=== PATIENT | male | born 1990 | race Caucasian/White ===

== ENCOUNTER 2025-02-04 16:43 | Emergency (ER) | payer OTHER, SELFPAY ==
--- OUTSIDE RECORDS SUMMARY | 2025-02-04 16:45 | XMS_ITS | Clinical Summary ---
Author Organization [facility] Address [address] [place] [address] Care Team Providers Care Stripping Machine Operator Name Role Phone Jennifer Herrera Primary Care Provider Allergies Active Allergy Reactions Criticality Noted Date Comments Ibuprofen Rash 08/21/2011 Medications lisdexamfetamine (Vyvanse) 40 mg capsuleIndications :ADHD, predominantly inattentive type Take 1 Capsule (40 mg) by mouth once daily. 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 Chronic rhinitis 04/05/2011 Anxiety state, unspecified 11/05/2009 Esophageal reflux Resolved Problems Problem Noted Date Diagnosed Date Resolved Date Acute myopericarditis 08/06/20112012 Tobacco use disorder 04/19/2011 013 Acute myocarditis, unspecified 04/25/2008 09/18/2012 Overview (04/25/2008): Likely viral Encounters Date Type Department Care Team Description 11/10/2024 Telephone [facility] [address] [place] [address] Jennifer Herrera PA Medication Management (lisdexamfetamine (Vyvanse) 40 mg capsule) from Last 3 Months Immunizations Immunization Administration Dates Next Due COVID-19 VACCINE SPIKEVAX (M ODERNA 50MCG/0.5ML) 12YO+ PFS 04/07/2024 COVID-19 vaccine (Pfizer-Bio NTech 30mcg/0.3mL) PFNANO 06/08/2021,10/07/2020,09/16/2020 DTaP 01/03/1995, 3,1989,1989,1989 HIB HbOC (HibTITER) 08/24/1990,04/09/1990 HIB PRP-T (ActHIB,Hiberix) 08/24/1990,04/09/1990 Hepatitis B (Peds) 07/05/2004,06/17/1996, 996 Hepatitis B, Unspecified 07/05/2004,06/17/1996,1 07/08/1995 INFLUENZA, IIV3 PF (AGE >= 6 MO) 04/07/2024 Inactivated Polio Vaccine 01/03/1995,11/1992,1989,1989 Influenza, IIV3 (Age >=3 years) 08/07/2011,04/27 Influenza, IIV4 03/25/2019,02/26/2018 Influenza, IIV4 (=>6mos) MDV 02/28/2017 MMR 01/03/1995,08/24/1990 Pneumococcal Poly,23-Valent (Pneumovax) 08/07/2011 Td (Age >=7 Years) 07/05/2004 Td, Preservative Free (age > = 7 Years) 03/25/2019,07/05/2004 Tdap 02/23/2009 Tuberculin (PPD) 04/05/2011 Family History Medical History Relation Name Comments Good Health Father Good Health Mother Good Health Sister 1 Heart Disease Sister 1 at 2 1/2 of myocarditis Good Health Sister 2 Relation Name Status Comments Brother Father Mother Alive Sister 1 Sister 2 Alive Social History Tobacco Use Types Packs/Day Years Used Date Smoking Tobacco: Former Cigarettes 0.5 3 0 07/28/2017 - 07/28/2020 Smokeless Tobacco: Former Chew Quit: 08/05/2011 Tobacco Cessation:Counseling Given: Not Answered Comments:off and on Alcohol Use Standard Drinks/Week Comments No 0.8 (1 standard drink = 0.6 oz p ure alcohol) PHQ-2 Answer Date Recorded PHQ-2 TOTAL SCORE 1 08/25/2020 Financial Resource Strain Answer Date R ecorded Difficulty of Paying Living Expenses Not on file 06/03/2021 Difficulty of Paying Living Expenses Not on file 06/03/2021 Sex and Gender Information Value Date Recorded Sex Assigned at Male 02/14/2020 12:51 PM CDT Legal Sex Male 5:49 AM BUILDING MECHANIC Gender Identity Male 02/14/2020 12:51 PM CDT Sexual Orientation Straight 02/14/2020 12 :51 PM CDT Obstetrics History Last Filed Vital Signs Vital Sign Reading Time Taken Comments Blood Pressure 102/69 04/07/2024 1:23 PM BUILDING MECHANIC Pulse 84 04/07/2024 1:23 PM BUILDING MECHANIC Temperature 37.1 C (98.7 F) 04/21/2019 10:57 AM BUILDING MECHANIC Respiratory Rate 16 02/20/2019 2:02 PM CDT Oxygen Saturation 98% 04/21/2019 10:57 AM BUILDING MECHANIC Inhaled Oxygen Concentration - - Weight 83 kg (183 lb) 04/07/2024 1:23 PM BUILDING MECHANIC Height 176 cm (5' 9.29) 04/07/2024 1:23 PM BUILDING MECHANIC Body Mass Index 26.8 04/07/2024 1:23 PM BUILDING MECHANIC Plan of Treatment Health Maintenance Due Date Last Done Comments Depression screening for age 12+ 08/25/2021 08/25/2020, 08/25/2020, 08/25/2020, Additional history exists Lipids for age 35-44 2024 Influenza Vaccine (#1) 2025 , 03/25/2019, 02/26/2018, Additional history exists BMI (ht and wt on same day) for age 18+ 04/07/2025 04/07/2024, 11/23/2020, 08/19/2019, Additional history exists Tetanus booster 03/25/2029 03/25/2019, 02/03, 07/05/2004, Additional history exists RSV vaccine for adults or (1 - 1-dose 75+ series) 2064 Hepatitis B series for 19+ Completed 07/05, 07/05/2004, 06/17/1996, Additional history exists HIV for age 15-65 Completed 06/30/2009 Hepatitis C screening for age 18-79 Completed 06/30/2009 Pneumococcal series for age 6-49 Aged Out 08/07/2011 No longer eligible based on patient's age to complete this topic COVID-19 vaccine series Completed 04/07/20, 06/08/2021, 10/07/2020, Additional history exists Procedures Procedure Name Priority Date/Time Associated Diagnosis Comments ANTI HIV 1/2 Routine 06/30/2009 6:04 PM BUILDING MECHANIC Abdominal Pain, Unspecified Site ANTI HCV Routine 06/30/2009 6:04 PM BUILDING MECHANIC Abdominal Pain, Unspecified Site from Last 3 Months or Most Recently Relevant to Health Maintenance Results * ANTI HCV (06/30/2009 6:04 PM BUILDING MECHANIC) ANTI HCV Non-reacti ve [facility] Blood specimen (specimen) BLOOD SPECIMEN / Unknown 06/30/2009 6:04 PM BUILDING MECHANIC 06/30/2009 5:54 PM BUILDING MECHANIC Jennifer HULL SEND OUTS Final R esult Performing Organization Address [facility]/ZIP Co de Phone Number [facility] INTERNAL ZIP [address] [place] [phone] * ANTI HIV 1/2 (06/30/2009 6:04 PM BUILDING MECHANIC) ANTI HIV 1/2 Non-reacti ve [facility] Blood specimen (specimen) BLOOD SPECIMEN / Unknown 06/30/2009 6:04 PM BUILDING MECHANIC 06/30/2009 5:54 PM BUILDING MECHANIC Jennifer HULL SEND OUTS Final R esult Performing Organization Address City/[facility]/ZIP Co de Phone Number [facility] INTERNAL ZIP [address] [place] [phone] from Last 3 Months or Most Recently Relevant to Health Maintenance Insurance [facility] Advance Directives * Full Code (Latest Code Status on File) Date Activated Date Inactivated Comments 08/06/2011 11:36 AM 08/12/2011 1:26 PM * Full Code Date Activated Date Inactivated Comments 04/25/2008 12:45 PM 04/28/2008 3:38 PM Care Teams Stripping Machine Operator Relationship Specialty Start Date End Date Jennifer Herrera PA [address] [place], [place] [phone] PCP - General 07/26/09
--- OUTSIDE RECORDS SUMMARY | 2025-02-04 16:45 | XMS_ITS | Clinical Summary ---
Author Organization [facility] Address [address] [place] [address] Care Team Providers Care Sterilization Tech Name Role Phone Magdi, [facility] Primary Care Provider Allergies Active Allergy Reactions Criticality Noted Date Comments Ibuprofen Itching,Rash Low 08/21/2011 Itching and white spots Ketorolac Itching Medium 07/04/2019 Medications fluticasone (FLONASE) 50 MCG/ACT nasal spray Omega 1 spray into both nostrils daily as needed for rhinitis or allergies Active acetaminophen (TYLENOL) 325 MG tablet Take 2 tablets (650 mg) by mouth every 6 hours as needed for mild pain 0 Active sertraline (ZOLOFT) 100 MG tablet Take 1 tablet by mouth daily at 2 pm 3 Active VYVANSE 20 MG capsule Take 20 mg by mouth daily 3 Active VYVANSE 50 MG capsule Take 50 mg by mouth daily 3 Active oxyCODONE (ROXICODONE) 5 MG tabletIndication s:Incisional hernia, without obstruction or gangrene Take 1-2 tablets (5-10 mg) by mouth every 4 hours as needed for moderate to severe pain 20 tablet 3 Active ondansetron (ZOFRAN ODT) 4 MG ODT tabIndications:I ncisional hernia, without obstruction or gangrene Take 1 tablet (4 mg) by mouth every 8 hours as needed for nausea 10 tablet 3 Active Active Problems Problem Noted Date Diagnosed Date Cholecystitis 01/05/2019 Peritonitis 11/28/2018 Acute cholecystitis 11/27/2018 Immunizations Immunization Administration Dates Next Due DTaP, Unspecified 01/03/1995, 3,1989,1989,1989 HIB (PRP-T) 08/24/1990,04/09/1990 HepB, Unspecified 07/05/2004,06/17/1996,05/07/19 96 Influenza (IIV3) PF 08/07/2011,04/27/2008 Influenza Vaccine >6 months,quad, PF 02/26/2018, 02/28/2017 MMR (MMRII) 01/03/1995,08/24/1990 Pneumococcal 23 valent 08/07/2011 Poliovirus, inactivated (IPV) 01/03/1995 ,09/07/1992,1989,1989 TD,PF 7+ (Tenivac) 07/05/2004 Tdap (Adult) Unspecified Formulation 02/23/2009 Family History Medical History Relation Comments Colon Cancer No family hx of Social History Tobacco Use Types Packs/Day Years Used Date Smoking Tobacco: Former Cigarettes Q uit: 2019 Passive Smoke Exposure: Current Smokeless Tobacco: Never Alcohol Use Standard Drinks/Week Comments Not Currently 0 (1 standard drink = 0.6 oz pur e alcohol) quit- 05/27/2018 Adolescent Education Answer Date Record ed Getting School Help Needed Not on file 02/23 Sex and Gender Information Value Date Recorded Sex Assigned at Not on file Legal Sex Male 6:04 PM DRY MAN Gender Identity Not on file Sexual Orientation Not on file Last Filed Vital Signs Vital Sign Reading Time Taken Comments Blood Pressure 126/90 12/29/2022 6:14 PM CDT Pulse 54 12/29/2022 4:35 PM CDT Temperature 36.4 C (97.5 F) 12/29/2022 4:55 PM CDT Respiratory Rate 16 12/29/2022 6:14 PM CDT Oxygen Saturation 99% 12/29/2022 6:1 4 PM CDT Inhaled Oxygen Concentration - - Weight 79.3 kg (174 lb 12.8 oz) 12/29/2022 10:47 AM CDT Height 175.3 cm (5' 9) 12/08/2022 10:0 5 AM CDT patient reported Body Mass Index 25.81 12/08/2022 10:05 AM CDT Plan of Treatment Health Maintenance Due Date Last Done Comments ADVANCE CARE PLANNING 1989 ANNUAL REVIEW OF HM ORDERS 1989 YEARLY PREVENTIVE VISIT 1992 HIV SCREENING 2004 HEPATITIS C SCREENING 2007 PHQ-2 (once per calendar year) 2024 COVID-19 VACCINE ( season) 2025 06/08/2021, 10/07/2020, 09/16/2020 INFLUENZA VACCINE (#1) 2025 9, 02/26/2018, 02/28/2017, Additional history exists DIABETES SCREENING 12/03/2025 12/03/2022, 0 07/05/2019, 07/04/2019, Additional history exists DTAP/TDAP/TD VACCINE (8 - Td or Tdap) 03/25/2029 03/25/2019, 02/23/2009, 02/23/2009, Additional history exists ZOSTER VACCINE (1 of 2) 2039 HEPATITIS B VACCINE Completed 07/05/2004, 07/05/2004, 06/17/1996, Additional history exists PNEUMOCOCCAL VACCINE: PEDIATRICS (0 to 5 YEARS) AND AT-RISK PATIENTS (6 to 49 YEARS) Aged Out 08/07/2011 No longer eligible based on patient's age to complete this topic HPV VACCINE (No Doses Required) Completed MENINGITIS VACCINE Aged Out No longer eligible based on patient's age to complete this topic Procedures Procedure Name Priority Date/Time Associated Diagnosis Comments COMPREHENSIVE METABOLIC PANEL STAT 12/03/2022 4:48 PM CDT from Last 3 Months or Most Recently Relevant to Health Maintenance Results * Comprehensive metabolic panel (12/03/2022 4:48 PM CDT) Sodium 137 136 - 145 mmol/L 12/03/2022 5:19 PM CDT [facility] Potassium 4.4 3.4 - 5.3 mmol/L 12/03/2022 5:19 PM CDT [facility] Chloride 105 98 - 107 mmol/L 12/03/2022 5:19 PM CDT [facility] Carbon Dioxide (CO2) 22 22 - 29 mmol/L 12/03/2022 5:19 PM CDT [facility] Anion Gap 10 7 - 15 mmol/L 12/03/2022 5:19 PM CDT [facility] Urea Nitrogen 7.6 6.0 - 20.0 mg/dL 12/03/2022 5:19 PM CDT [facility] Creatinine 0.71 0.67 - 1.17 mg/dL 12/03/2022 5:19 PM CDT [facility] Calcium 9.5 8.6 - 10.0 mg/dL 12/03/2022 5:19 PM CDT [facility] Glucose 94 70 - 99 mg/dL 12/03/2022 5:19 PM CDT [facility] Alkaline Phosphatase 128 40 - 129 U/L 12/03/2022 5:19 PM CDT [facility] AST 21 0 - 45 U/L 12/03/2022 5:19 PM CDT [facility] Comment:Reference intervals for this test were updated on 11/13/2022 to more accurately reflect our healthy population. There may be differences in the flagging of prior results with similar values performed with this method. Interpretation of those prior results can be made in the context of the updated reference intervals. ALT 24 0 - 70 U/L 12/03/2022 5:19 PM CDT [facility] Comment:Reference intervals for this test were updated on 11/13/2022 to more accurately reflect our healthy population. There may be differences in the flagging of prior results with similar values performed with this method. Interpretation of those prior results can be made in the context of the updated reference intervals. Protein Total 7.4 6.4 - 8.3 g/dL 12/03/2022 5:19 PM CDT [facility] Albumin 4.6 3.5 - 5.2 g/dL 12/03/2022 5:19 PM CDT [facility] Bilirubin Total 0.4 <=1.2 mg/dL 12/03/2022 5:19 PM CDT [facility] GFR Estimate >90 >60 mL/min/1. 73m2 12/03/2022 5:19 PM CDT [facility] Blood BLOOD SPECIMEN / Unknown Venipuncture / Unknown 12/03/2022 4:48 PM CDT 12/03/2022 4:54 PM CDT Bassam Schumacher PA-C LAB - BLOOD ORDERABLES Final Re sult [facility] [address] Lab (1st floor, no room number) [place] [address], [facility] [phone] from Last 3 Months or Most Recently Relevant to Health Maintenance Advance Directives For more information, please contact: [phone] * Full Code (Latest Code Status on File) Date Activated Date Inactivated Comments 07/02/2019 8:22 PM 07/06/2019 9:01 PM Question Answer Comments Code status determined by: Discussion with patie nt/legal decision maker * Full Code Date Activated Date Inactivated Comments 07/02/2019 12:45 AM 07/02/2019 8:22 PM Question Answer Comments Code status determined by: Discussion with patie nt/legal decision maker * Full Code Date Activated Date Inactivated Comments 01/05/2019 8:22 AM 01/05/2019 6:35 PM Question Answer Comments Code status determined by: Discussion with patie nt/legal decision maker * Full Code Date Activated Date Inactivated Comments 12/07/2018 11:18 AM 01/05/2019 8:17 AM Question Answer Comments Code status determined by: Discussion with patie nt/legal decision maker * Full Code Date Activated Date Inactivated Comments 11/27/2018 8:31 PM 11/28/2018 8:04 PM Question Answer Comments Code status determined by: Discussion with patie nt/legal decision maker Care Teams Sterilization Tech Relationship Specialty Start Date End Date [facility], [address] [address] PCP - General 07/08/18
[2025-02-04 16:47] VITALS: BP 134/84; PULSE 75; RESP 16; TEMP 36.6; O2SAT 98; BMI 24.5
--- NOTE | 2025-02-04 17:06 | ED.GENADULT ---
HPI - General Adult General Chief complaint: Skin/Abscess/Foreign Body Stated complaint: sore on back Time Seen by Provider: 02/04/25 16:45 Source: patient Mode of arrival: ambulatory Limitations: no limitations History of Present Illness HPI narrative: 34-year-old male coming in today complaining of a rash she has had for many years. He has flare-up on his back. Patient states that it is itchy and feels warm. He states that they always feel like this when they occur her. He denies any systemic symptoms. Patient states that he did see a penetration tester 1 time and he was put on some kind treatment, was not sure what it was. Has not been back since. He feels like he has brought this up to other physicians who always say that it looks okay and then the move on to his other medical issues. Related Data Home Medications ?Medication ?Instructions ?Recorded ?Confirmed lisdexamfetamine 40 mg capsule mg PO 02/04/25 Previous Rx's ?Medication ?Instructions ?Recorded triamcinolone acetonide 0.1 % 1 applic topical BID #15 grams 02/04/25 topical cream Allergies Allergy/AdvReac Type Severity Reaction Status Date / Time ibuprofen Allergy Unknown Verified 02/04/25 16:51 sunflower seed Allergy Unknown Verified 02/04/25 16:51 Review of Systems Status of ROS: Reports: 6 or more systems reviewed and unremarkable except as noted in History and below Exam Narrative: Exam Narrative: Well-nourished well-developed patient in no acute distress. Alert and oriented. Answers questions appropriately. Mood and affect are appropriate. Thoughts are goal oriented and rational. No tangential or magical thinking noted. Patient speaks in full sentences without needing to catch his breath. Patient does not appear ill or toxic. HEENT: Normocephalic atraumatic. Extraocular muscles are intact. Conjunctivae are moist without any icterus noted. Moist mucous membranes. Skin: Patient has scarring from previous rash episodes on trunk and extremities. He currently has on his back a rough red patch about an inch and half in diameter, mildly excoriated from scratching. Does not appear infected. Const: Vital Signs, click to edit/add: Vital Signs - 24 hr 02/04/25 16:47 Temperature 97.9 F Pulse Rate [Pulse Oximeter] 75 Respiratory Rate 16 Blood Pressure [Ri ght Upper Arm] 134/84 Pulse Oximetry 98 Oxygen Delivery Me thod Room Air Course Vital Signs Vital signs: Initial Vital Signs Temperature 97.9 F 02/04/25 16:47 Temperature Source Temporal Artery Scan 02/04/25 16:47 Pulse Rate 75 02/04/25 16:47 Respiratory Rate 16 02/04/25 16:47 Blood Pressure 134/84 02/04/25 16:47 Blood Pressure Mean 100 02/04/25 16:47 Blood Pressure Position Sitting 02/04/25 16:47 Pulse Oximetry 98 02/04/25 16:47 Oxygen Delivery Method Room Air 02/04/25 16:47 Vital Signs Temperature 97.9 F 02/04/25 16:47 Pulse Rate 75 02/04/25 16:47 Respiratory Rate 16 02/04/25 16:47 Blood Pressure 134/84 02/04/25 16:47 Pulse Oximetry 98 02/04/25 16:47 Oxygen Delivery Method Room Air 02/04/25 16:47 Temperature 97.9 F 02/04/25 16:47 Pulse Rate 75 02/04/25 16:47 Respiratory Rate 16 02/04/25 16:47 Blood Pressure 134/84 02/04/25 16:47 Pulse Oximetry 98 02/04/25 16:47 Oxygen Delivery Method Room Air 02/04/25 16:47 Medical Decision Making MDM Narrative Medical decision making narrative: 34-year-old male with chronic rash. Looks eczematous in nature. Will treat with triamcinolone. Urged patient to establish care with a new penetration tester. We discussed the chronicity of this issue and the need for chronic maintenance. Discharge Plan Discharge Clinical Impression: Rash Patient Disposition: Home, Self-Care Condition: Stable Additional Instructions: Recommend establishing care with a new penetration tester as this is a chronic issue that will require chronic maintenance. Prescriptions: New triamcinolone acetonide 0.1 % cream 1 applic topical BID Qty: 15 0RF No Action lisdexamfetamine 40 mg capsule PO Follow Up/Referrals: Jennifer Herrera PA-C [Primary Care Provider, Family Practice] Stand Alone Forms: [facility] Info Inst[facility]
== END 2025-02-04 17:26 | disposition home or self-care (01) ==
PROVIDERS: Emergency Provider Family Medicine; PCP Physician Assistant Medical
DX: R21 Rash and other nonspecific skin eruption (principal)
CPT/HCPCS: 99283

== ENCOUNTER 2025-02-14 00:33 | Emergency (ER) | payer OTHER, SELFPAY ==
--- OUTSIDE RECORDS SUMMARY | 2025-02-14 00:36 | XMS_ITS | Clinical Summary ---
Author Organization [facility] Address [address] [place] [address] Care Team Providers Care Transfer Car Operator Name Role Phone Magdi, [facility] Primary Care Provider Allergies Active Allergy Reactions Criticality Noted Date Comments Ibuprofen Itching,Rash Low 08/21/2011 Itching and white spots Ketorolac Itching Medium 07/04/2019 Medications fluticasone (FLONASE) 50 MCG/ACT nasal spray [place] 1 spray into both nostrils daily as [...] on file Legal Sex Male 6:04 PM SEARCHLIGHT OPERATOR Gender Identity Not on file Sexual Orientation [...] LAB - BLOOD ORDERABLES Final Re sult [facility] [address] Lab (1st floor, no room number) [place] [address], [facility] [phone] from Last 3 Months or Most Recently Relevant to Health Maintenance Advance Directives For more information, please contact: [phone] * Full Code (Latest Code Status on [...] with patie nt/legal decision maker Care Teams Transfer Car Operator Relationship Specialty Start Date End Date [facility], [address] [address] PCP - General 07/08/18
--- OUTSIDE RECORDS SUMMARY | 2025-02-14 00:36 | XMS_ITS | Clinical Summary ---
Author Organization [facility] Address [address] [place] [address] Care Team Providers Care Diaper Folder Name Role Phone Jennifer Herrera Primary Care [...] unspecified 04/25/2008 09/18/2012 Overview (04/25/2008): Likely viral Immunizations Immunization Administration Dates Next Due COVID-19 VACCINE SPIKEVAX (M ODERNA 50MCG/0.5ML) 12YO+ PFS 04/07/2024 COVID-19 vaccine (JibJab-Bio NTech 30mcg/0.3mL) PF, MDV 06/08/2021,10/07/2020,09/16/2020 DTaP 01/03/1995, 3,1989,1989,1989 HIB HbOC (HibTITER) [...] PM CDT Legal Sex Male 5:49 AM INSTRUCTIONAL AIDE Gender Identity Male 02/14/2020 12:51 PM CDT Sexual Orientation Straight 02/14/2020 12 :51 PM CDT Obstetrics History Last Filed Vital Signs Vital Sign Reading Time Taken Comments Blood Pressure 102/69 04/07/2024 1:23 PM INSTRUCTIONAL AIDE Pulse 84 04/07/2024 1:23 PM INSTRUCTIONAL AIDE Temperature 37.1 C (98.7 F) 04/21/2019 10:57 AM INSTRUCTIONAL AIDE Respiratory Rate 16 02/20/2019 2:02 PM CDT Oxygen Saturation 98% 04/21/2019 10:57 AM INSTRUCTIONAL AIDE Inhaled Oxygen Concentration - - Weight 83 kg (183 lb) 04/07/2024 1:23 PM INSTRUCTIONAL AIDE Height 176 cm (5' 9.29) 04/07/2024 1:23 PM INSTRUCTIONAL AIDE Body Mass Index 26.8 04/07/2024 1:23 PM INSTRUCTIONAL AIDE Plan of Treatment Health Maintenance Due Date Last Done Comments HPV series for age 9-45 (1 - 3-dose SCDM series) 2016 Depression screening for age 12+ 08/25/2021 08/25/2020, [...] complete this topic COVID-19 vaccine series Completed 04/07/20 24, 06/08/2021, 10/07/2020, Additional history exists Procedures Procedure Name Priority Date/Time Associated Diagnosis Comments ANTI HIV 1/2 Routine 06/30/2009 6:04 PM INSTRUCTIONAL AIDE Abdominal Pain, Unspecified Site ANTI HCV Routine 06/30/2009 6:04 PM INSTRUCTIONAL AIDE Abdominal Pain, Unspecified Site from Last 3 Months or Most Recently Relevant to Health Maintenance Results * ANTI HCV (06/30/2009 6:04 PM INSTRUCTIONAL AIDE) ANTI HCV Non-reacti ve [facility] Blood specimen (specimen) BLOOD SPECIMEN / Unknown 06/30/2009 6:04 PM INSTRUCTIONAL AIDE 06/30/2009 5:54 PM INSTRUCTIONAL AIDE Jennifer HULL SEND OUTS Final R esult [facility] [place]NAL ZIP [phone] [place] [id number] * ANTI HIV 1/2 (06/30/2009 6:04 PM INSTRUCTIONAL AIDE) ANTI HIV 1/2 Non-reacti ve [facility] Blood specimen (specimen) BLOOD SPECIMEN / Unknown 06/30/2009 6:04 PM INSTRUCTIONAL AIDE 06/30/2009 5:54 PM INSTRUCTIONAL AIDE Jennifer HULL SEND OUTS Final R esult [facility] INTERNAL ZIP [phone] [place] [address] from Last 3 Months or Most Recently Relevant to Health Maintenance Insurance [facility] [place] [id number] [phone] Advance Directives * Full Code (Latest Code Status on File) Date Activated Date Inactivated Comments 08/06/2011 11:36 AM 08/12/2011 1:26 PM * Full Code Date Activated Date Inactivated Comments 04/25/2008 12:45 PM 04/28/2008 3:38 PM Care Teams Diaper Folder Relationship Specialty Start Date End Date Jennifer Herrera PA [address] [place] [id number] PCP - General 07/26/09
[2025-02-14 00:41] VITALS: BP 141/97; PULSE 101; RESP 16; TEMP 36.7; O2SAT 99; BMI 24.5
--- NOTE | 2025-02-14 01:16 | ED.GENADULT ---
HPI - General Adult General Chief complaint: Skin/Abscess/Foreign Body Stated complaint: R leg red/swollen Time Seen by Provider: 02/14/25 00:39 History of Present Illness HPI narrative: recently evaluated for sores on butt/ back/legs and was told eczema . rx for steroid cream. put on one time today and now R cox sore is inflamed and oozing. states his other sores are redder as well. concerned for infection 34-year-old man presenting to the emergency depart with concern of infected sores. Does have a history of recurrent sores. Last seen in this emergency department 10 days ago with a rash and given steroid cream. He has sores erupting on upper back right and in particular an eruption on the right cox is now more inflamed been oozing. He was noting that it was much worse as he was leaving work to come here. Does have picture where there does appear to be more erythema broadly than after some period elevation here in the emergency department. Not recall any history of MRSA. Does not recall any cultures ever being obtained. No fever but felt warm. No sore throat. Related Data Home Medications ?Medication ?Instructions ?Recorded ?Confirmed lisdexamfetamine 40 mg capsule mg PO 02/04/25 Previous Rx's ?Medication ?Instructions ?Recorded triamcinolone acetonide 0.1 % 1 applic topical BID #15 grams 02/04/25 topical cream clindamycin HCl 300 mg capsule 300 mg PO TID 8 days #24 caps 02/14/25 Allergies Allergy/AdvReac Type Severity Reaction Status Date / Time ibuprofen Allergy Unknown Verified 02/04/25 16:51 sunflower seed Allergy Unknown Verified 02/04/25 16:51 Review of Systems Status of ROS: Reports: 6 or more systems reviewed and unremarkable except as noted in History and below [facility] [place] Social History Smoking Status: Never smoker Do you use any of these nicotine containing products: None How often do you have a drink containing alcohol: never AUDIT-C Alcohol total score: 0 Non-prescribed substance use: denies use Exam Narrative: Exam Narrative: Pleasant. NAD. Skin is warm and dry. Heart is in elevated rate. Further on skin there are some darkening areas/discoloration on the upper back and and elsewhere and on upper back irregularly-shaped up to an inch in diameter scabbed lesions. Almost look like abrasions. Similar appearing lesions a little larger of the right hip/buttock. Erythema without induration around both of these. No drainage. They are scabbed over. Freshest wound appears to be erupting on the mid right cox. An area of swelling about 6 cm in maximal diameter. There is a small amount of serous drainage from the upper aspect. In the lower aspect there is a 2 mm pustule forming. There is some erythema spreading out from this lesion more broadly over the lower right leg. Some mild calor and induration. Const: Vital Signs, click to edit/add: Vital Signs - 24 hr 02/14/25 00:41 Temperature 98.1 F Pulse Rate [Pulse Oximeter] 101 H Respiratory Rate 16 Blood Pressure [Ri ght Upper Arm] 141/97 H Pulse Oximetry 99 Oxygen Delivery Me thod Room Air Documenting provider has reviewed patient's vital signs: yes Course Vital Signs Vital signs: Initial Vital Signs Temperature 98.1 F 02/14/25 00:41 Temperature Source Temporal Artery Scan 02/14/25 00:41 Pulse Rate 101 H 02/14/25 00:41 Respiratory Rate 16 02/14/25 00:41 Blood Pressure 141/97 H 02/14/25 00:41 Blood Pressure Mean 111 H 02/14/25 00:41 Blood Pressure Position Sitting 02/14/25 00:41 Pulse Oximetry 99 02/14/25 00:41 Oxygen Delivery Method Room Air 02/14/25 00:41 Vital Signs Temperature 98.1 F 02/14/25 00:41 Pulse Rate 101 H 02/14/25 00:41 Respiratory Rate 16 02/14/25 00:41 Blood Pressure 141/97 H 02/14/25 00:41 Pulse Oximetry 99 02/14/25 00:41 Oxygen Delivery Method Room Air 02/14/25 00:41 Temperature 98.1 F 02/14/25 00:41 Pulse Rate 90 02/14/25 02:04 Respiratory Rate 18 02/14/25 02:04 Blood Pressure 141/97 H 02/14/25 00:41 Pulse Oximetry 100 02/14/25 02:04 Oxygen Delivery Method Room Air 02/14/25 02:04 Medications Administered Medications: Discontinued Medications Generic Name Dose Route Start Last Admin Trade Name Freq PRN Reason Stop Dose Admin Ceftriaxone Sodium 1 gm 02/14/25 01:31 02/14/25 01:50 Ceftriaxone 1 Gm Vial IM 02/14/25 01:32 1 gm ONCE ONE Administration Clindamycin HCl 300 mg 02/14/25 01:35 02/14/25 01:54 Clindamycin 150 Mg Capsule PO 02/14/25 01:36 300 mg ONCE ONE Administration Lidocaine HCl 2.1 ml 02/14/25 01:31 02/14/25 01:51 Lidocaine 1% 5 Ml (Pf) 5 Ml Vial IM 2.1 ml DIRECTED PRN Administration Pain Medical Decision Making MDM Narrative Medical decision making narrative: Does appear to have a cellulitis here. Without prior cultures I think it might be beneficial to culture this small pustule on the right cox. I am not sure what these erosive skin lesions are. Seems as though a systemic infection is popping up, erupting in various locations. Biopsies prior apparently were inconclusive or not followed up on. This is not typical eczema. I think requires antibiotics at this time. Considering other labs but I do not know that this would change treatment at this time. Would collect a wound culture though as noted. Did cleanse right cox with Betadine. Wiped with alcohol and then punctured this pustule for wound collection. Hopefully this obtains more than just standard skin jasmin. Given a shot of Rocephin here in the emergency department. Discussed medications that may have been effective more remotely. We settled on clindamycin pending wound cultures. Does seem to have improved somewhat with wound elevation. See patient discharge plan for further discussion It would appear that elevating your leg while at rest would be a good idea. Can take up to 800 mg ibuprofen of to 1000 mg of acetaminophen per dose. You received Rocephin here in the emergency department along with a dose of clindamycin. We do not have that in [facility] currently so I have to send this in to your pharmacy. I would stop treating with steroid cream (triamcinolone) at least over any open wounds/sores. Return for marked increase in redness or swelling, fever. A wound culture will be pending here and if it appears that it might change your treatment, we will give you a call. Medical Records Medical records reviewed: Yes I reviewed the patient's medical records Discharge Plan Discharge Clinical Impression: Cellulitis Patient Disposition: Home, Self-Care Condition: Stable Additional Instructions: It would appear that elevating your leg while at rest would be a good idea. Can take up to 800 mg ibuprofen of to 1000 mg of acetaminophen per dose. You received Rocephin here in the emergency department along with a dose of clindamycin. We do not have that in [facility] currently so I have to send this in to your pharmacy. I would stop treating with steroid cream (triamcinolone) at least over any open wounds/sores. Return for marked increase in redness or swelling, fever. A wound culture will be pending here and if it appears that it might change your treatment, we will give you a call. Prescriptions: New clindamycin HCl 300 mg capsule 300 mg PO TID 8 Days Qty: 24 0RF No Action lisdexamfetamine 40 mg capsule PO triamcinolone acetonide 0.1 % cream 1 applic topical BID Qty: 15 0RF Follow Up/Referrals: Jennifer Herrera PA-C [Primary Care Provider, Family Practice] Stand Alone Forms: [facility] Info Instructions
[2025-02-14] MEDS: cefTRIAXone 1 GM VIAL IM (01:50)
[2025-02-14] MEDS: LIDOCAINE 1% 5 ml (pf) 5 ML VIAL 2.1 ML IM (01:51)
[2025-02-14] MEDS: CLINDAMYCIN 150 MG CAPSULE 300 MG PO (01:54)
[2025-02-14 02:04] VITALS: PULSE 90; RESP 18; O2SAT 100
== END 2025-02-14 02:05 | disposition home or self-care (01) ==
PROVIDERS: Emergency Provider Family Medicine; PCP Physician Assistant Medical
DX: L03.115 Cellulitis of right lower limb (principal)
CPT/HCPCS: 87070; 87186; 96372; 99284; A9270; J0696